=== PATIENT | female | born 1995 ===

== ENCOUNTER 2018-10-30 13:49 | Emergency (ER) | payer OTHER, MEDICAID ==
[2018-10-30] MEDS ORDERED: Sodium Chloride 0.9% 500 ML IV ONE ×2 (14:13→14:41)
[2018-10-30 14:36] LABS: BASO % 0.2 % (0.0-2.0); HEMOGLOBIN 11.9 g/dL (11.0-16.0); LYMPH # 0.8 K/uL (1.0-4.3); LYMPH % 5.9 % (20.0-40.0); MEAN CELL VOLUME 91.3 fL (81.0-99.0); MEAN CORPUSCULAR HEMOGLOBIN 31.8 pg (27.0-31.0); MEAN CORPUSCULAR HGB CONC 34.8 g/dL (33.0-37.0); MEAN PLATELET VOLUME 10.6 fL (7.2-11.7); MONO # 1.1 K/uL (0.0-0.8); MONO % 8.1 % (0.0-10.0); NEUT # 11.9 K/uL (1.8-7.0); NEUT % 85.8 % (50.0-75.0); PLATELET COUNT 144 K/uL (130-400); RBC 3.74 Mil/uL (3.80-5.20); RED CELL DISTRIBUTION WIDTH 13.6 % (11.5-14.5); WHITE BLOOD COUNT 13.9 K/uL (4.8-10.8)
[2018-10-30 14:39] LABS: HCG,QUALITATIVE URINE POSITIVE (NEGATIVE)
[2018-10-30 14:43] LABS: SQUAMOUS EPITHIAL 9 /hpf (0-5); URINE BACTERIA MANY (<OCC); URINE BILIRUBIN NEGATIVE (NEGATIVE); URINE BLOOD NEGATIVE (NEGATIVE); URINE CLARITY Hazy (Clear); URINE COLOR Yellow (YELLOW); URINE GLUCOSE (UA) NORMAL (Normal); URINE LEUKOCYTE ESTERASE NEG Leu/uL (Negative); URINE PROTEIN NEGATIVE (NEGATIVE); URINE UROBILINOGEN NORMAL mg/dL (0.2-1.0)
[2018-10-30 14:49] LABS: ALB/GLOB RATIO 1.5 (1.0-2.1); ALBUMIN 4.1 g/dL (3.5-5.0); ALT/SGPT 9 U/L (9-52); AST/SGOT 18 U/L (14-36); BLOOD UREA NITROGEN 2 mg/dL (7-17); CALCIUM 9.4 mg/dl (8.6-10.4); GFR NON-AFRICAN AMERICAN > 60; INFLUENZA A B POS FOR INFLUENZA A (NEGATIVE); LIPASE 59 U/L (23-300)
[2018-10-30 15:09] LABS: LYMPHOCYTE 6 % (20-40); MONOCYTE 7 % (0-10); NEUTROPHIL 87 % (50-75); PLATELET ESTIMATE NORMAL (NORMAL); TOTAL CELLS COUNTED 100
[2018-10-30 15:10] LABS: ANISOCYTOSIS SLIGHT; POLYCHROMIC SLIGHT
[2018-10-30 15:11] LABS: LARGE PLATELETS PRESENT; TOXIC GRANULATION PRESENT
--- NOTE | 2018-10-30 15:56 | US ---
Date of service: 10/30/2018 PROCEDURE: OB Pelvic Ultrasound HISTORY: Pain 08/09/2018 COMPARISON: None available. FINDINGS: UTERUS: Gestational sac: 65 mm. Out of range for determination of age. [place]-rump length 61 mm equivalent to 12 weeks 4 days. Heart rate: 161 bpm. age (Ultrasound estimated): 12 weeks 4 days [place]-gestational hemorrhage: None. Date of delivery (Ultrasound estimated) : 05/10/2019 2 mm yolk sac identified. Uterus measures 15.5 x 7.7 x 9.8 cm. Normal in size and appearance. CERVIX: Measures 3.8 cm. Long and closed. No cervical abnormality seen. RIGHT OVARY: Measures 3.5 x 2.5 x 3.4 cm. No mass lesion. Normal flow. 2.6 cm corpus luteum identified. LEFT OVARY: Measures 2.6 x 1.8 x 2.5 cm. No solid mass. Normal flow. FREE FLUID: None. OTHER FINDINGS: None. IMPRESSION: Single live intrauterine gestation of approximately 12 weeks 4 days. heart rate 161. No subchorionic hemorrhage. Cervix long and closed. No other significant abnormality.
[2018-10-30 16:02] LABS: VENOUS BLOOD GAS BASE EXCESS -3.6 mmol/L (0.0-2.0); VENOUS BLOOD GAS PCO2 34 mmHg (40-60); VENOUS BLOOD GAS PO2 32 mm/Hg (30-55); VENOUS BLOOD PH 7.39 (7.32-7.43)
[2018-10-30 16:38] LABS: VENOUS BLOOD GAS BASE EXCESS -2.6 mmol/L (0.0-2.0); VENOUS BLOOD GAS PCO2 36 mmHg (40-60); VENOUS BLOOD GAS PO2 29 mm/Hg (30-55); VENOUS BLOOD PH 7.39 (7.32-7.43)
[2018-10-30 16:41] VITALS: BP 102/65; PULSE 89; RESP 16; TEMP 98.4; O2SAT 99
[2018-10-30 16:42] LABS: SQUAMOUS EPITHIAL 2 /hpf (0-5); URINE BACTERIA MANY (<OCC); URINE BILIRUBIN NEGATIVE (NEGATIVE); URINE BLOOD NEGATIVE (NEGATIVE); URINE CLARITY Clear (Clear); URINE COLOR Straw (YELLOW); URINE GLUCOSE (UA) NORMAL (Normal); URINE LEUKOCYTE ESTERASE NEG Leu/uL (Negative); URINE PROTEIN NEGATIVE (NEGATIVE); URINE UROBILINOGEN NORMAL mg/dL (0.2-1.0)
--- NOTE | 2018-10-30 17:17 | C.PDOC ---
History Of Present Illness 22 yo female c/o fever, bodyaches, occasional cough, sore throat, and pelvic pain. She took tylenol last night. Pt is 3 months with care and normal US 2 weeks ago. Denies vaginal bleeding, vaginal discharge, abdominal pain, n/v, sob, chest pain, or neck pain. Time Seen by Provider: 10/30/18 14:01 Chief Complaint (Nursing): Abdominal Pain History Per: Patient, Last Code Striper (HERMAN Cruz) History/Exam Limitations: no limitations Onset/Duration Of Symptoms: Hrs (last night) Location Of Pain/Discomfort: Suprapubic Associated Symptoms: Fever (subjective) Past Medical History Vital Signs: Last Vital Signs Temp 98.4 F 10/30/18 16:40 Pulse 89 10/30/18 16:40 Resp 16 10/30/18 16:40 BP 102/65 10/30/18 16:40 Pulse Ox 99 10/30/18 16:40 Family History: States: Unknown Family Hx - Social History Hx Alcohol Use: No Hx Substance Use: No Review Of Systems Except As Marked, All Systems Reviewed And Found Negative. Constitutional: Positive for: Fever Respiratory: Positive for: Cough Genitourinary: Positive for: Pelvic Pain Physical Exam - Physical Exam Appears: Well, Non-toxic, No Acute Distress Skin: Normal Color, Warm, Dry Head: Atraumatic, Normacephalic Eye(s): bilateral: Normal Inspection, EOMI Ear(s): Bilateral: Normal Nose: Normal Oral Mucosa: Moist Throat: Normal, No Erythema, No Exudate Neck: Normal, Normal ROM, Supple Chest: Symmetrical Cardiovascular: Rhythm Regular Respiratory: Normal Breath Sounds Gastrointestinal/Abdominal: Soft, Tenderness (suprapubic tenderness) Back: Normal Inspection, No CVA Tenderness, No Vertebral Tenderness Extremity: Normal ROM Neurological/Psych: Oriented x3, Normal Speech ED Course And Treatment - Laboratory Results Result Diagrams: 10/30/18 14:31 10/30/18 14:31 Lab Results: pO2 29 mm/Hg (30-55) L 10/30/18 16:30 VBG pH 7.39 (7.32-7.43) 10/30/18 16:30 VBG pCO2 36 mmHg (40-60) L 10/30/18 16:30 VBG HCO3 21.7 mmol/L 10/30/18 16:30 VBG Total CO2 22.9 mmol/L (22-28) 10/30/18 16:30 VBG O2 Sat (Calc) 63.4 % (40-65) 10/30/18 16:30 VBG Base Excess -2.6 mmol/L (0.0-2.0) L 10/30/18 16:30 VBG Potassium 3.6 mmol/L (3.6-5.2) 10/30/18 16:30 Sodium 134.0 mmol/l (132-148) 10/30/18 16:30 Chloride 108.0 mmol/L (98-107) H 10/30/18 16:30 Glucose 85 mg/dl (65-105) 10/30/18 16:30 Lactate 0.5 mmol/L (0.7-2.1) L 10/30/18 16:30 Crit Value Called To Fransisco figueroa rn 10/30/18 15:50 Crit Value Called By Eladio yepez entry level sales consultant 10/30/18 15:50 Crit Value Read Back Y 10/30/18 15:50 Blood Gas Notified Time 1601 10/30/18 15:50 Total Bilirubin 0.3 mg/dL (0.2-1.3) 10/30/18 14:31 AST 18 U/L (14-36) 10/30/18 14:31 ALT 9 U/L (9-52) 10/30/18 14:31 Alkaline Phosphatase 55 U/L (38-126) 10/30/18 14:31 Total Protein 6.9 g/dL (6.3-8.3) 10/30/18 14:31 Albumin 4.1 g/dL (3.5-5.0) 10/30/18 14:31 Globulin 2.8 gm/dL (2.2-3.9) 10/30/18 14:31 Albumin/Globulin Ratio 1.5 (1.0-2.1) 10/30/18 14:31 Lipase 59 U/L (23-300) 10/30/18 14:31 Urine Color Straw (YELLOW) 10/30/18 16:36 Urine Clarity Clear (Clear) 10/30/18 16:36 Urine pH 6.0 (5.0-8.0) 10/30/18 16:36 Ur Specific [place] 1.002 (1.003-1.030) L 10/30/18 16:36 Urine Protein Negative mg/dL (NEGATIVE) 10/30/18 16:36 Urine Glucose (UA) Normal mg/dL (Normal) 10/30/18 16:36 Urine Ketones Negative mg/dL (NEGATIVE) 10/30/18 16:36 Urine Blood Negative (NEGATIVE) 10/30/18 16:36 Urine Nitrate Negative (NEGATIVE) 10/30/18 16:36 Urine Bilirubin Negative (NEGATIVE) 10/30/18 16:36 Urine Urobilinogen Normal mg/dL (0.2-1.0) 10/30/18 16:36 Ur Leukocyte Esterase Neg [place]/uL (Negative) 10/30/18 16:36 Urine WBC (Auto) 1 /hpf (0-5) 10/30/18 16:36 Urine RBC (Auto) < 1 /hpf (0-3) 10/30/18 16:36 Ur Squamous Epith Cells 2 /hpf (0-5) 10/30/18 16:36 Urine Bacteria Many (<OCC) H 10/30/18 16:36 Urine HCG, Qual Positive (NEGATIVE) 10/30/18 14:31 Beta HCG, Quant 380520.00 mIU/ML 10/30/18 14:31 Urine HCG, Qual Positive (NEGATIVE) 10/30/18 14:31 O2 Sat by Pulse Oximetry: 99 - CT Scan/US Pelvic US Other Rad Studies (CT/US): Read By Radiologist, Radiology Report Reviewed CT/US Interpretation: Date of service: 10/30/2018. PROCEDURE: OB Pelvic Ultrasound. HISTORY: Pain. 08/09/2018. COMPARISON: None available. FINDINGS: UTERUS: Gestational sac: 65 mm. Out of range for determination of f etal age. [place]-rump length 61 mm equivalent to 12 weeks 4 days. Heart rate: 161 bpm. age (Ultrasound estimated): 12 weeks 4 days. [place]- gestational hemorrhage: None. Date of delivery (Ultrasound estimated) : 05/10/2019. 2 mm yolk sac identified. Uterus measures 15.5 x 7.7 x 9.8 cm. Normal in size and appearance. CERVIX: Measures 3.8 cm. Long and closed. No cervical abnormality seen. RIGHT OVARY: Measures 3.5 x 2.5 x 3.4 cm. No mass lesion. Normal flow. 2.6 cm corpus luteum identified. LEFT OVARY: Measures 2.6 x 1.8 x 2.5 cm. No solid mass. Normal flow. FREE FLUID: None. OTHER FINDINGS: None. IMPRESSION: Single live intrauterine gestation of approximately 12 week s 4 days. heart rate 161. No subchorionic hemorrhage. Cervix long and closed. No other significant abnormality. Progress Note: Influenza (+) . TReated with tamiflu. UA shows many bacteria. Likely contaminated. REpeat UA shows same thing. Will treat. On re-evaluation, pt is resting comfortably. Abdomen soft , nontender. Lungs CTA. Neck supple. Afebrile. Discussed results with pt and offered observation. PT declined . Discussed signs of concern and to follow up with PMD in 1-2 days. Case discussed with Dr Barlow who evaluated labs and pt at bedside and agreed upon plan and discharge. Disposition - Disposition Disposition: HOME/ ROUTINE Disposition Time: 17:17 Condition: STABLE Additional Instructions: Vaya a velez mdico o la clnica en 2-5 walters sin falta, para mas evaluacin. [place] los medicamentos carlos indicado. Volver a la kia de emergencia en cualquier momento si los sntomas persisten o empeoran. Prescriptions: Acetaminophen [Tylenol 325mg tab] 650 mg PO Q4 PRN #20 tab PRN Reason: Pain, Mild (1-3) Nitrofurantoin Macrocrystals [Macrobid] 1 cap PO BID #14 cap Oseltamivir Phosphate [Tamiflu] 75 mg PO BID #10 capsule Instructions: Flu, Adult (DC) Forms: morphCARD (Uzbek) Print Language: SWEDISH - Clinical Impression Clinical Impression: Influenza A, UTI (urinary tract infection)
== END 2018-10-30 17:34 | disposition home or self-care (01) ==
LOC: C.ER 13:49
DX: J09.X2 Influenza due to identified novel influenza A virus with other respiratory manifestations (principal); N39.0 Urinary tract infection, site not specified
CPT/HCPCS: 76801; 80053; 81001; 82803; 83690; 84702; 84703; 85025; 87070; 87086; 87430; 87804; 96360; 99284; J7040